=== PATIENT | male | born 1945 | race Caucasian/White ===

== ENCOUNTER → 2023-12-19 | Outpatient (CLI) | payer MEDICARE ==
--- NOTE | 2023-12-19 12:24 | CTL ---
EXAMINATION TYPE: CT Low Dose Lung DATE OF EXAM ORDERED: 12/19/2023 History: Lung cancer screening CT DLP: 115.[address] CTDI: 2.9 mGy Automated exposure control for dose reduction was used. COMPARISON: None TECHNIQUE: Low dose computed tomography scan was performed through the chest at 1 mm thick sections a nd reconstructed images in multiple planes at 1 mm and [address] DIAGNOSTIC QUALITY: Satisfactory FINDINGS: There is no suspicious lung mass or nodule. There is no abnormal airspace consolidative density or abnormal special density. There is no pleural effusion, pleural thickening or pneumothorax. There is no mediastinal, hilar or axillary adenopathy. There is mild aneurysmal dilatation of descending thoracic aorta which measures approximately 4 cm. Limited scanning through the upper abdomen is no gross adenopathy. No focal osseous lesions are seen. IMPRESSION: 1. Lung metastases category 1 negative. Continue routine screening yearly intervals. 2. Mild aneurysmal dilatation of ascending thoracic aorta which measures 4 cm.
== END | disposition home or self-care (01) ==
LOC: RADCTMAIN 11:25
PROVIDERS: ATTEND Family Medicine
DX: Z12.2 Encounter for screening for malignant neoplasm of respiratory organs (principal); I71.21 Aneurysm of the ascending aorta, without rupture; F17.210 Nicotine dependence, cigarettes, uncomplicated
CPT/HCPCS: 71271

== ENCOUNTER → 2025-03-20 | Outpatient (CLI) | payer MEDICARE ==
--- NOTE | 2025-03-20 14:35 | CTL ---
EXAMINATION TYPE: CT Low Dose Lung DATE OF EXAM ORDERED: 03/20/2025 COMPARISON: CT Low Dose Lung 12/19/2023 CLINICAL INDICATION: Male, 79 years old with history of Z12.2 LUNG CA SCR F17.210 CURRENT SMOKER; [facility] , Lung cancer screening, current smoker, Lung cancer screening, History of Smoking/tobacco use. TECHNIQUE: Low dose computed tomography scan was performed through the chest at 1 mm thick sections a nd reconstructed images in multiple planes at 1 mm and [address] DLP: 89.[address] CTDI: 2.40 mGy Automated exposure control for dose reduction was used. CT DIAGNOSTIC QUALITY: Satisfactory FINDINGS: Nodules: No clinically significant pulmonary nodule. LUNGS: COPD: Severity: None Fibrosis: Severity: None Lymph nodes: None Other findings: None RIGHT PLEURAL SPACE: Effusion: None Calcification: None Thickening: None Pneumothorax: None LEFT PLEURAL SPACE: Effusion: None Calcification: None Thickening: None Pneumothorax: None HEART: Heart Size: Normal Coronary Calcification: None Pericardial Effusion: Trace OTHER FINDINGS: Upper abdomen: Partial visualization of possible left hydronephrosis. Bony thorax: None Supraclavicular region: None Other: Ascending thoracic aortic aneurysm measuring up to 4.0 cm again. IMPRESSION: 1. No clinically significant pulmonary nodule. 2. Possible hydronephrosis of the partially visualized left kidney. Correlate clinically with consid eration for renal ultrasound. 3. Stable ascending thoracic aortic aneurysm measuring up to 4.[address] LUNG RAD AND CT CHEST RECOMMENDATION: Lung-Rad 1 Negative: Continue annual screening with LDCT in 12 months. S Modifier (other clinically significant findings): [facility], , 03/20/2025 2:32 PM
== END | disposition home or self-care (01) ==
LOC: RADCTMAIN 13:27
PROVIDERS: ATTEND Family Medicine
DX: Z12.2 Encounter for screening for malignant neoplasm of respiratory organs (principal); F17.210 Nicotine dependence, cigarettes, uncomplicated; I71.21 Aneurysm of the ascending aorta, without rupture
CPT/HCPCS: 71271